=== PATIENT | male | born 1970 | race Caucasian/White ===

== ENCOUNTER 2016-08-15 15:06 | Emergency (ER) | payer OTHER ==
[~2016-08-15] VITALS: Ht 175.3 cm; Wt 136.4 kg
[~2016-08-15 15:06] MED LIST: AMLO-39 PO; ASPI-973 PO; GLPZ5T PO; LORA-302 PO; LOSA100T29 PO; METF1000 PO; NPH,100I SUBQ; OMEP20CA11 PO
[2016-08-15 15:13] VITALS: BP 173/103; PULSE 77; RESP 20; O2SAT 97
--- NOTE | 2016-08-15 17:12 | DRSVH ---
PROCEDURE: CT BRAIN WITHOUT CONTRAST ([id number]) INDICATIONS: CRUZ, HTN TECHNIQUE: Noncontrast 4.5 mm thick angled axial sections acquired from the foramen magnum to the vertex, with c oronal reformats. COMPARISON: None. FINDINGS: Image quality: Excellent. CSF spaces: Basal cisterns are patent. No extra-axial fluid collections. Ventricles are normal in size and shape. Brain: No midline shift. No intracranial masses or hemorrhage. Andersen-white matter interface is norm al. Skull and face: Calvarium and visualized facial bones are intact, without suspicious lesions. Sinuses: Visualized sinuses and mastoids are clear. IMPRESSION: No acute intracranial findings. Dictated by: Norma Arango M.D. on 08/15/2016 at 17:10 Approved by: Norma Arango M.D. on 08/15/2016 at 17:10
--- NOTE | 2016-08-15 18:09 | ED.REPORT ---
HPI-Headache Date of Service Aug 15, 2016 ED Provider: Lori Rojo MD A 45 year old male with a history of type II diabetes and hypertension presents to the ED complaining of a headache that began 3 days ago. Patient took ibuprofen with no relief and the pain is exacerbated by light. The headache has been constant since onset and has become progressively worse over the past few days. Patient reports that his BP was elevated at 220 last night. The patient's is expressing concern for stroke. Patient has been experiencing confusion, difficulty forming sentences and occasionally dropping items. He currently takes losartan, 2.5mg of Norvasc and insulin 2x per day. Patient denies any previous similar episodes of pain. He denies any current chest pain, SOB, visual disturbances, fever, neck pain, numbness or tingling. Nursing Notes Stated Complaint: POSSIBLE HIGH BLOOD PRESSURE/SEVERE HEADACHE Chief Complaint: General Complaint Nursing Notes Reviewed: Yes Allergies: Coded Allergies: Penicillins (Verified Allergy, Unknown, 03/14/16) Scheduled Amlodipine (Amlodipine) 2.5 Mg Tablet 2.5 MG PO DAILY Glipizide (Glipizide) 5 Mg Tablet 5 MG PO BID Losartan Potassium (Losartan Potassium) 100 Mg Tablet 100 MG PO DAILY Metformin (Glucophage) 1,000 Mg Tablet 1,000 MG PO BIDWM NPH, Human Insulin Isophane (HUMulin-N U100 Insulin Kwikpen) 100 Unit/1 Ml Insuln.pen 12 UNIT SUBQ BID Omeprazole (Omeprazole) 20 Mg Capsule.dr 20 MG PO DAILY Scheduled PRN Butalbital/Acetamin/Caff 50-300-40 mg (Fioricet 50-300-40 mg) 1 Each Capsule 1 CAPSULE PO Q4H PRN PRN Headache General Time Seen by MD: 18:07 Chief Complaint Headache Hx Obtained From: Patient, Spouse Arrived By: Walk-in Sudden in Onset?: No Onset Occurred: 3 days ago Symptom Duration: Since onset Location: : Generalized Quality: Aching Radiation: : Does not radiate Severity: Current: Moderate Severity: Maximum: Moderate Associated with: Reports: Confusion, Difficulty speaking, Denies: Fever, Numbness, Visual disturbance Pertinent Negative: Pt denies other symptoms Exacerbated by: Light Pertinent Negative: Relieved by nothing Recent Healthcare: No recent doctor visit, No recent hospitalization Risk-Headache )( SAH Risk Stratification Hypertension RF Statements: Risk factors reviewed )( IC Mass Risk Stratification RF Statements: Risk factors reviewed Past Medical History Past Medical History Sleep apnea Hx of bowel obstruction Diabetes mellitus Hypertension VT TIA in 2015, given TPA. Past Surgical History None reported. Family History Noncontributory Smoking History Never Smoker Social History Alcohol Use: 1-3 per day Drug Use: Denies drug use Other Social History: Good social support, , Local resident Occupation Owns his own business Ambulatory Status Independent Review of Systems Constitutional: Denies: Chills, Fever Eyes: Reports: Photophobia, Denies: Blurred bilateral, Discharge bilateral GI: Denies: Abdominal pain, Nausea, Vomiting Musculoskeletal: Denies: Neck pain Neurologic: Reports: Confusion, Focal weakness ( reports pt is "dropping things"), Denies: Change LOC, Numbness, Unable to speak (Difficulty with speech ) Complete sys rev & neg: except as marked. Respiratory: Denies: Shortness of breath Cardiovascular: Denies: Chest pain Physical Exam Initial Vital Signs Vital Signs (First) Date Time Temp Pulse Resp B/P Pulse Ox O2 Delivery O2 Flow Rate FiO2 08/15/16 15:13 37.2 77 20 173/103 97 Room Air Initial VS: Reviewed Extremities: Vascular intact, Neuro intact, No swelling, No tenderness Skin: Warm, Dry, No cyanosis Psychiatric: Mood/affect normal, Behavior normal, Normal thought content General/Constitutional: Awake, Alert Head / Eyes: Atraumatic, Normocephalic, PERRL (pupil 4 mm ) Neck: Atraumatic, Supple Neurologic: Oriented X3, Speech NL, No motor deficits, No sensory deficits, CN II - XII intact, Reflexes equal bilat, Cerebellar NL, Memory NL NEURO: Patient is answering questions appropriately No pronator drift Normal finger/nose exam Respiratory / Chest: Atraumatic, Breath sounds NL, Breath sounds = bilat Cardiovascular: Heart rate NL, Regular rhythm, Heart sounds NL Interpretation & Diagnostics Lab Results Interpretation Result Diagram: 08/15/16182908/15/161829 Test 08/15/16 18:30 White Blood Count 8.5th/mm3 (3.8-10.1) Red Blood Count 5.05mil/mm3 (4.40-5.80) Hemoglobin 15.1g/dL (13.8-17.2) Hematocrit 44.9% (41.0-50.0) Mean Corpuscular Volume 88.9fL (81-100) Mean Corpuscular Hemoglobin 29.9pg (27.0-35.0) Mean Corpuscular Hemoglobin Concent 33.6% (32.0-37.0) Red Cell Distribution Width 13.6% (12.3-15.4) Platelet Count 272bil/L (150-400) Neutrophils (%) (Auto) 56.1% (40-74) Lymphocytes (%) (Auto) 27.1% (14-46) Monocytes (%) (Auto) 14.0% (4-12) Eosinophils (%) (Auto) 2.3% (0-5) Basophils (%) (Auto) 0.4% (0-3) Sodium Level 141mEq/L (134-144) Potassium Level 3.5mEq/L (3.5-5.2) Chloride Level 102mEq/L (97-108) Carbon Dioxide Level 24mmol/L (18-29) Blood Urea Nitrogen 15mg/dL (6-24) Creatinine 1.00mg/dL (0.76-1.27) Estimat Glomerular Filtration Rate 86mL/min (>59) Glucose Level 122mg/dL (60-99) Calcium Level 9.1mg/dL (8.5-10.1) Total Bilirubin 0.3mg/dL (0.0-1.2) Aspartate Amino Transf (AST/SGOT) 32U/L (0-50) Alanine Aminotransferase (ALT/SGPT) 57U/L (0-44) Alkaline Phosphatase 72U/L (25-150) Total Protein 7.5g/dL (6.4-8.4) Albumin 4.2g/dL (3.4-5.0) CT Head Interpretation IMPRESSION: No acute intracranial findings. Dictated by: Norma Arango M.D. on 08/15/2016 at 17:10 Study: Head CT no contrast Interpretation / Wet Read by: Interpret - Radiologist Re-Eval/Medical Decision Med Decision/Clinical Course 45-year-old male with past medical history of insulin-dependent diabetes and hypertension here with gradual onset headache without associated neurologic deficit. Differential diagnosis includes but is not limited to hypertensive urgency versus emergency versus renal insufficiency versus asymptomatic hypertension. While I did not order a CT scan, it was ordered from triage. I do not feel that he needed a CT scan, nor do I feel he needs an LP to rule out subarachnoid hemorrhage, as headache was gradual onset, has no neurologic deficit, has been constant for the last several days, has no associated no carotid rigidity, and is not consistent with brain bleed. His CMP is normal. I have increased his amlodipine, of which she is only taking 2.5 mg at the moment. He will follow up with his primary care physician. His headache has resolved with Compazine and Benadryl. He is aware and amenable to discharge and has been given very strict return precautions. Re-Evaluation/Progress : Time of Eval: 19:48 )( Patient Status: Condition improved Re-Evaluation/Progress Note: Patient is rechecked. Headache is improved. He is informed of his lab results, CT results and diagnoses. All of the patient's questions are addressed. He understands and agrees to the treatment plan. Counseled Regarding: Diagnosis, Lab results, Need for follow-up, When/why to return to ED Discharge & Departure Impression: Primary Impression: Headache Headache type: unspecified Headache chronicity pattern: unspecified pattern Intractability: not intractable Qualified Code: R51 - Headache Disposition: Home Discharge Condition All VS Reviewed: Yes Condition: Stable Patient Instructions: Acute Headache (ED) Additional Instructions: Thank you for trusting us with your care this evening. Your lab work and CT brain results are reassuring that there is no dangerous cause for concern at this time. Please take 5mg of amlodipine instead of 2.5. Schedule a follow up appointment with your primary care physician in the next 2-3 days for a recheck. Please return to the emergency department for any new or worsening symptoms. Referrals: Agustin Patel DO (PCP) Juan Martel MD [facility] Scribe Attestation Portions of this note were transcribed by Vince Sexton. I, Dr. Rojo personally performed the history, physical exam and medical decision-making; I reviewed and confirmed the accuracy of the information in the transcribed note. Signed by: Cristina Gilliam, 08/15/162014. copies to: Agustin Patel Rebecca A MD Aug 15, 2016 18:09 VINCE SEXTON Aug 15, 2016 18:25
[2016-08-15] MEDS ORDERED: 0.9% Sodium Chloride 1,000 ML IV ONE (18:21)
[2016-08-15] MEDS ORDERED: Magnesium Sulf 2 Gm/50mL Water 2 GM in IV Premix 1 EACH IV ONE (18:25)
[2016-08-15] MEDS ORDERED: ProchlorPERazine 5 mg/mL 2 mL Inj IVPUSH ONE (18:25)
[2016-08-15 18:49] LABS: BASOPHILS % (AUTO) 0.4 % (0-3); EOSINOPHILS % (AUTO) 2.3 % (0-5); Mean Corpuscular Hemoglobin 29.9 pg (27.0-35.0); Mean Corpuscular Volume 88.9 fL (81-100); NEUTROPHILS % (AUTO) 56.1 % (40-74); Platelet Count 272 bil/L (150-400)
[2016-08-15 19:53] VITALS: BP 167/104; PULSE 69; RESP 18; O2SAT 100
[2016-08-15] MEDS ORDERED: AMLO2.5T PO (20:03)
[2016-08-15] MEDS ORDERED: BUTA1CAP39 PO (20:11)
[2016-08-15 20:13] VITALS: BP 167/104; PULSE 69; RESP 18; O2SAT 100
== END 2016-08-15 20:24 | disposition home or self-care (01) ==
LOC: SED 15:06
DX: R51 Headache (principal); I10 Essential (primary) hypertension; E11.9 Type 2 diabetes mellitus without complications; I25.2 Old myocardial infarction; Z86.73 Personal history of transient ischemic attack (TIA), and cerebral infarction without residual deficits; Z79.4 Long term (current) use of insulin; Z79.84 Long term (current) use of oral hypoglycemic drugs; Z88.0 Allergy status to penicillin
CPT/HCPCS: 36415; 70450; 80053; 82948; 85025; 96365; 96375; 99285; J0780; J1200; J7030